=== PATIENT | male | born 1950 | race Caucasian/White ===

== ENCOUNTER 2020-12-10 13:01 | Outpatient (CLI) | payer OTHER ==
[~2020-12-10 13:01] MED LIST: AMLODIPINE-OLM1 EAC1 PO; ATORVASTATIN CA10 MG PO; AVAPRO300 MG PO; CEFADROXIL500 MG PO; FUROSEMIDE20 MG PO; HUMULIN 70100 UNIT/2 IJ; METFORMIN HCL500 MG PO; PERCOCET 5-3251 EACH PO; PLAVIX75 MG PO; RANITIDINE PO; TEMAZEPAM15 MG PO; TENORMIN25 MG PO; TERAZOSIN HCL10 MG PO; XARELTO10 MG PO
== END 2020-12-10 13:12 | disposition home or self-care (01) ==
LOC: MRI 13:01
PROVIDERS: ATTEND Psychiatry & Neurology Clinical Neurophysiology
DX: F01.50 Vascular dementia, unspecified severity, without behavioral disturbance, psychotic disturbance, mood disturbance, and anxiety (principal); G30.1 Alzheimer's disease with late onset
CPT/HCPCS: 70551

== ENCOUNTER → 2021-05-09 14:02 | Outpatient (CLI) | payer OTHER | END | disposition home or self-care (01) | LOC: EKG 14:02 | PROVIDERS: ATTEND Internal Medicine Cardiovascular Disease | DX: I10 Essential (primary) hypertension (principal) ==

== ENCOUNTER 2021-10-10 07:19 | Outpatient (CLI) | payer OTHER | END 2021-10-10 07:34 | disposition home or self-care (01) | LOC: LAB 07:19 | DX: I15.8 Other secondary hypertension (principal); D63.8 Anemia in other chronic diseases classified elsewhere; N39.0 Urinary tract infection, site not specified; I48.91 Unspecified atrial fibrillation ==

== ENCOUNTER → 2022-03-17 | Outpatient (CLI) | payer OTHER | END | disposition home or self-care (01) | LOC: RAD 07:48 | DX: M47.812 Spondylosis without myelopathy or radiculopathy, cervical region (principal) ==

== ENCOUNTER 2024-05-06 07:27 | Outpatient (CLI) | payer OTHER | END 2024-05-06 07:28 | disposition home or self-care (01) | LOC: NUCLEAR 07:27 | PROVIDERS: ATTEND Internal Medicine | DX: I20.9 Angina pectoris, unspecified (principal) | CPT/HCPCS: 78452; 93017; A9500; J0153 ==

== ENCOUNTER 2024-10-13 07:19 | Outpatient (CLI) | payer OTHER | END 2024-10-13 07:21 | disposition home or self-care (01) | LOC: NUCLEAR 07:19 | PROVIDERS: ATTEND Internal Medicine | DX: I73.9 Peripheral vascular disease, unspecified (principal) ==